=== PATIENT | male | born 2000 | race Caucasian/White ===

== ENCOUNTER 2019-08-30 18:58 | Inpatient (IN) | payer MEDICAID ==
[~2019-08-30] VITALS: Ht 177.8 cm; Wt 87.7 kg
[2019-08-30 21:54] LABS: BASOPHILS % (AUTO) 0.5 % (0.0-2.0); EOSINOPHILS % (AUTO) 0.7 % (1.0-6.0); HEMATOCRIT 50.5 % (41-53); HEMOGLOBIN 16.8 g/dL (13.5-17.5); LYMPHOCYTES # (AUTO) 2.4 K/uL (1.0-4.8); LYMPHOCYTES % (AUTO) 15.9 % (22.0-44.0); MEAN CORPUSCULAR HEMOGLOBIN 29.9 pg (26.0-34.0); MEAN CORPUSCULAR HGB CONC 33.3 G/dL (31.0-37.0); MEAN CORPUSCULAR VOLUME 90 fL (80-100); MONOCYTES # (AUTO) 0.9 K/uL (0.1-1.0); MONOCYTES % (AUTO) 6.2 % (2.0-9.0); NEUTROPHILS # (AUTO) 11.6 K/uL (1.8-7.7); NEUTROPHILS % (AUTO) 76.7 % (40.0-70.0); RED BLOOD CELL COUNT(AUTO) 5.63 MIL/uL (4.50-5.90); RED CELL DISTRIBUTION WIDTH 13.7 % (11.5-14.5)
[2019-08-30] MEDS ORDERED: LORazepam 2 MG TABLET PO PRN (22:00)
[2019-08-30] MEDS ORDERED: ALPRAZolam 0.25 MG TABLET PO ONE (22:00)
[2019-08-30] MEDS ORDERED: OLANZapine 5 MG RAPDIS TABLET PO PRN (22:00)
[2019-08-30 22:14] LABS: ANION GAP 7 mmol/L (8-16); CARBON DIOXIDE 29 mmol/L (22-29); CHLORIDE 103 mmol/L (98-107); CREATININE 0.81 mg/dL (0.60-1.30); GLOMERULAR FILTR. RATE CALC > 60 mL/min (>60); GLUCOSE,RANDOM 98 mg/dL (70-110); POTASSIUM 4.2 mmol/L (3.5-5.1); SODIUM SERUM 139 mmol/L (136-145); UREA NITROGEN, BLOOD 15 mg/dL (7-18)
[2019-08-30 22:21] LABS: ALANINE AMINOTRANSFERASE 42 U/L (12-78); ALBUMIN 4.4 g/dL (3.4-5.0); ALKALINE PHOSPHATASE 92 U/L (46-116); ASPARTATE AMINOTRANSFERASE 23 U/L (15-37); BILIRUBIN,TOTAL 0.6 mg/dL (0.1-1.0); TOTAL PROTEIN, SERUM 8.2 g/dL (6.4-8.2)
[2019-08-30 22:36] LABS: PLATELET COUNT (AUTO) 170 K/uL (150-450); PLATELET MORPHOLOGY COMMENT LARGE PLTS PRESENT
[2019-08-30 23:19] LABS: AMPHET/METH SCREEN,URINE POSITIVE (NEGATIVE); BARBITURATE SCREEN, URINE NEGATIVE (NEGATIVE); BENZODIAZEPINES SCREEN,URINE NEGATIVE (NEGATIVE); CANNABINOID SCREEN,URINE POSITIVE (NEGATIVE); COCAINE SCREEN,URINE NEGATIVE (NEGATIVE); METHADONE SCREEN, URINE NEGATIVE (NEGATIVE); OPIATE SCREEN,URINE NEGATIVE (NEGATIVE)
[2019-08-30 23:20] LABS: PHENCYCLIDINE SCREEN,URINE NEGATIVE (NEGATIVE)
[2019-08-31] MEDS: ZOLPIDEM TARTRATE 10 MG TABLET PO PRN ×2 (00:17→22:06)
[2019-08-31 00:56] LABS: CHOL/HDL RATIO 1.8 (4.2-7.3); CHOLESTEROL 127 mg/dL (131-200); HDL CHOLESTEROL 71 mg/dL (40-60); LDL CHOL (CALC.) 39 mg/dL (0-130); TRIGLYCERIDES 84 mg/dL (15-150)
[2019-08-31 01:01] LABS: APPEARANCE,URINE CLOUDY (CLEAR); BILIRUBIN,URINE NEGATIVE (NEGATIVE); GLUCOSE, URINE (UA) NEGATIVE (NEGATIVE); KETONES,URINE NEGATIVE (NEGATIVE); LEUKOCYTE ESTERASE ,URINE NEGATIVE (NEGATIVE); NITRATE,URINE NEGATIVE (NEGATIVE); OCCULT BLOOD,URINE NEGATIVE (NEGATIVE); PH,URINE 6.5 (5.0-8.0); PROTEIN,URINE NEGATIVE (NEGATIVE)
[2019-08-31 01:26] VITALS: BP 133/75
[2019-08-31 02:04] VITALS: BP 133/75
[2019-08-31] MEDS ORDERED: PETROLATUM,WHITE 28 GM JELLY TP PRN (08:15)
[2019-08-31] MEDS ORDERED: MAG HYDROX/AL HYDROX/SIMETH ES 30 ML SUSPENSION UDCUP PO PRN ×2 (08:15→17:30)
[2019-08-31] MEDS ORDERED: LOPERAMIDE HCL 2 MG CAPSULE PO PRN ×2 (08:15→17:30)
[2019-08-31] MEDS ORDERED: ONDANSETRON HCL 4 MG TABLET PO PRN (08:15)
[2019-08-31] MEDS ORDERED: ACETAMINOPHEN 325 MG TABLET PO PRN ×2 (08:15→17:30)
[2019-08-31] MEDS ORDERED: ALBUTEROL SULFATE HFA 90 MCG/PUFF 8 GM INHALER IH PRN (08:15)
[2019-08-31] MEDS ORDERED: GuaiFENesin/D-METHORPHAN [SUGAR-FREE] 200-20MG/10 ML SYRUP UDCUP PO PRN ×2 (08:15→17:30)
[2019-08-31] MEDS ORDERED: CloNIDine HCL 0.1 MG TABLET PO PRN (08:15)
[2019-08-31] MEDS ORDERED: IBUPROFEN 400 MG TABLET PO PRN (08:15)
[2019-08-31] MEDS ORDERED: MAGNESIUM HYDROXIDE SUSPENSION 30 ML UDCUP PO PRN ×2 (08:15→17:30)
[2019-08-31] MEDS ORDERED: DOCUSATE SODIUM 100 MG CAPSULE PO PRN (08:15)
[2019-08-31] MEDS ORDERED: NICOTINE 14 MG/24 HOUR PATCH TD PRN (08:15)
[2019-08-31] MEDS ORDERED: TUBERCULIN, PURIFIED PROTEIN DERIVATIVE 5 TU/0.1 ML SYRINGE ID ONE (17:30)
[2019-08-31] MEDS ORDERED: PROMETHAZINE HCL 25 MG TABLET PO PRN (17:30)
[2019-08-31] MEDS ORDERED: RisperiDONE 1 MG TABLET PO PRN (17:30)
[2019-08-31] MEDS ORDERED: HydrOXYzine PAMOATE 50 MG CAPSULE PO PRN (17:30)
[2019-08-31] MEDS: DIVALPROEX SODIUM 500 MG ER TABLET PO SCH (20:13)
[2019-08-31] MEDS: RisperiDONE 1 MG TABLET PO SCH (20:13)
[2019-09-01] MEDS: GuanFACINE HCL 1 MG TABLET PO SCH ×3 (09:00→16:08)
[2019-09-01] MEDS: FOLIC ACID 1 MG TABLET PO SCH (09:00)
[2019-09-01] MEDS: THIAMINE 100 MG TABLET PO SCH ×2 (09:00→16:09)
[2019-09-01] MEDS: ATOMOXETINE HCL 25 MG CAPSULE PO SCH (09:00)
[2019-09-01] MEDS: NALTREXONE HCL 50 MG TABLET PO SCH (09:00)
[2019-09-01] MEDS: MULTIVITAMINS WITH MINERALS, THERAPEUTIC TABLET PO SCH (09:00)
[2019-09-01 16:08] VITALS: BP 124/77
[2019-09-01] MEDS: DIVALPROEX SODIUM 500 MG ER TABLET PO SCH (20:15)
[2019-09-01] MEDS: RisperiDONE 1 MG TABLET PO SCH (20:15)
[2019-09-01] MEDS: ZOLPIDEM TARTRATE 10 MG TABLET PO PRN (22:13)
[2019-09-02 01:26] VITALS: BP 143/67
[2019-09-02] MEDS: NALTREXONE HCL 50 MG TABLET PO SCH (08:46)
[2019-09-02] MEDS: THIAMINE 100 MG TABLET PO SCH ×2 (08:46→17:28)
[2019-09-02] MEDS: FOLIC ACID 1 MG TABLET PO SCH (08:46)
[2019-09-02] MEDS: GuanFACINE HCL 1 MG TABLET PO SCH ×3 (08:46→17:28)
[2019-09-02] MEDS: MULTIVITAMINS WITH MINERALS, THERAPEUTIC TABLET PO SCH (08:46)
[2019-09-02] MEDS: ATOMOXETINE HCL 25 MG CAPSULE PO SCH (08:46)
[2019-09-02 09:23] LABS: HEMOGLOBIN A1C 4.8 % (3.8-5.6)
[2019-09-02 09:42] LABS: CHOL/HDL RATIO 1.9 (4.2-7.3); FREE T4 (FREE THYROXINE) 1.19 ng/dL (0.76-1.46); THYROID STIMULATING HORMONE 1.71 uIU/mL (0.36-3.74)
[2019-09-02 16:17] VITALS: BP 133/74
[2019-09-02] MEDS: RisperiDONE 1 MG TABLET PO SCH (20:19)
[2019-09-02] MEDS: DIVALPROEX SODIUM 500 MG ER TABLET PO SCH (20:19)
[2019-09-02] MEDS: ZOLPIDEM TARTRATE 10 MG TABLET PO PRN (20:20)
[2019-09-03 08:22] VITALS: BP 106/59
[2019-09-03] MEDS: MULTIVITAMINS WITH MINERALS, THERAPEUTIC TABLET PO SCH (08:55)
[2019-09-03] MEDS: GuanFACINE HCL 1 MG TABLET PO SCH ×3 (08:55→16:16)
[2019-09-03] MEDS: THIAMINE 100 MG TABLET PO SCH ×2 (08:55→16:16)
[2019-09-03] MEDS: FOLIC ACID 1 MG TABLET PO SCH (08:55)
[2019-09-03] MEDS: NALTREXONE HCL 50 MG TABLET PO SCH (08:56)
[2019-09-03] MEDS: ATOMOXETINE HCL 25 MG CAPSULE PO SCH (08:56)
[2019-09-03 16:39] VITALS: BP 119/60
[2019-09-03] MEDS ORDERED: DIVA-80 PO (18:51)
[2019-09-03] MEDS ORDERED: ATOM25CA8 PO (18:51)
[2019-09-03] MEDS ORDERED: RISP1TAB89 PO (18:51)
[2019-09-03] MEDS ORDERED: GUAN1TAB2 PO (18:51)
[2019-09-03] MEDS ORDERED: NALT50TA PO (18:51)
[2019-09-03] MEDS: RisperiDONE 1 MG TABLET PO SCH (19:42)
[2019-09-03] MEDS: DIVALPROEX SODIUM 500 MG ER TABLET PO SCH (19:42)
== END 2019-09-03 20:30 | disposition home or self-care (01) | DRG 885 ==
LOC: EMS 18:58 → 3EC 21:54
PROVIDERS: ADMIT Psychiatry & Neurology Psychiatry; ATTEND Psychiatry & Neurology Psychiatry
DX: F20.9 Schizophrenia, unspecified (principal); R45.851 Suicidal ideations; F90.9 Attention-deficit hyperactivity disorder, unspecified type; R45.850 Homicidal ideations; Z91.19 Patient's noncompliance with other medical treatment and regimen; F17.210 Nicotine dependence, cigarettes, uncomplicated; F32.9 Major depressive disorder, single episode, unspecified; F41.9 Anxiety disorder, unspecified; F19.10 Other psychoactive substance abuse, uncomplicated; K59.00 Constipation, unspecified; D72.829 Elevated white blood cell count, unspecified; F15.10 Other stimulant abuse, uncomplicated; F10.20 Alcohol dependence, uncomplicated; Y90.9 Presence of alcohol in blood, level not specified
CPT/HCPCS: 83036; 84439; 84443; 86592; G0480

== ENCOUNTER 2023-03-24 20:13 | Emergency (ER) | payer OTHER ==
[~2023-03-24] VITALS: Ht 177.8 cm; Wt 82.0 kg
[~2023-03-24 20:13] MED LIST: ATOM25CA8 PO; DIVA500T53 PO; GUAN1TAB2 PO; NALT50TA PO; RISP-31 PO
[2023-03-24 20:47] VITALS: BP 126/62; PULSE 89; RESP 20; TEMP 99.5
== END 2023-03-24 20:55 | disposition left against medical advice (07) ==
LOC: EMS 20:28
DX: R50.9 Fever, unspecified (principal); M54.9 Dorsalgia, unspecified; Z53.21 Procedure and treatment not carried out due to patient leaving prior to being seen by health care provider
CPT/HCPCS: 99281; Z7502

== ENCOUNTER 2023-10-09 17:09 | Emergency (ER) | payer OTHER ==
[~2023-10-09] VITALS: Ht 177.8 cm; Wt 81.8 kg
[~2023-10-09 17:09] MED LIST changes: +DIVA-153 PO; -DIVA500T53 PO; -NALT50TA PO; +NALT50TA6 PO
[2023-10-09 17:19] VITALS: TEMP 98.7
[2023-10-09 17:37] LABS: BASOPHILS % (AUTO) 0.8 % (0.0-2.0); EOSINOPHILS % (AUTO) 1.2 % (1.0-6.0); HEMATOCRIT 47.2 % (41-53); HEMOGLOBIN 15.8 g/dL (13.5-17.5); LYMPHOCYTES # (AUTO) 1.5 K/uL (1.0-4.8); LYMPHOCYTES % (AUTO) 14.9 % (22.0-44.0); MEAN CORPUSCULAR HGB CONC 33.4 G/dL (31.0-37.0); MEAN CORPUSCULAR VOLUME 84 fL (80-100); MONOCYTES # (AUTO) 0.8 K/uL (0.1-1.0); MONOCYTES % (AUTO) 8.2 % (2.0-9.0); NEUTROPHILS # (AUTO) 7.5 K/uL (1.8-7.7); NEUTROPHILS % (AUTO) 74.9 % (40.0-70.0); PLATELET COUNT (AUTO) 255 K/uL (150-450); RED BLOOD CELL COUNT(AUTO) 5.65 MIL/uL (4.50-5.90); RED CELL DISTRIBUTION WIDTH 15.1 % (11.5-14.5)
[2023-10-09 17:44] LABS: ANION GAP 9 mmol/L (8-16); CALCIUM, TOTAL 9.1 mg/dL (8.8-10.5); CARBON DIOXIDE 26 mmol/L (22-29); CHLORIDE 100 mmol/L (98-107); GLOMERULAR FILTR. RATE CALC > 60 mL/min (>60); GLUCOSE,RANDOM 94 mg/dL (70-110); SODIUM SERUM 135 mmol/L (136-145); UREA NITROGEN, BLOOD 8 mg/dL (7-18)
[2023-10-09 17:54] LABS: ALCOHOL, BLOOD (SERUM) < 3 mg/dL (0-10)
[2023-10-09 19:27] LABS: APPEARANCE,URINE CLEAR (CLEAR); BILIRUBIN,URINE NEGATIVE (NEGATIVE); COLOR,URINE LIGHT YELLOW (YELLOW); GLUCOSE, URINE (UA) NEGATIVE (NEGATIVE); KETONES,URINE NEGATIVE (NEGATIVE); LEUKOCYTE ESTERASE ,URINE NEGATIVE (NEGATIVE); NITRATE,URINE NEGATIVE (NEGATIVE); OCCULT BLOOD,URINE NEGATIVE (NEGATIVE); PH,URINE 6.5 (5.0-8.0); PH,URINE DRUG SCREEN 6.5 (5.0-8.0); PROTEIN,URINE NEGATIVE (NEGATIVE); SPECIFIC GRAVITIY, URINE 1.013 (1.003-1.030); UROBILINOGEN,URINE <=1.0 mg/dL (<=1.0)
[2023-10-09 19:35] LABS: ALCOHOL, URINE DRUG SCREEN NEGATIVE (NEGATIVE); AMPHET/METH SCREEN,URINE POSITIVE (NEGATIVE); BARBITURATE SCREEN, URINE NEGATIVE (NEGATIVE); BENZODIAZEPINES SCREEN,URINE NEGATIVE (NEGATIVE); CANNABINOID SCREEN,URINE NEGATIVE (NEGATIVE); COCAINE SCREEN,URINE NEGATIVE (NEGATIVE); METHADONE SCREEN, URINE NEGATIVE (NEGATIVE); OPIATE SCREEN,URINE NEGATIVE (NEGATIVE); PHENCYCLIDINE SCREEN,URINE NEGATIVE (NEGATIVE)
[2023-10-09] MEDS: BUPRENORPHINE HCL/NALOXONE HCL 8-2 MG SUBLINGUAL TABLET SL ONE (21:40)
[2023-10-09] MEDS ORDERED: ONDA-104 PO (22:11)
[2023-10-09] MEDS ORDERED: DICY-1 PO (22:11)
[2023-10-09 22:56] VITALS: BP 127/69; PULSE 76; RESP 22; O2SAT 98
== END 2023-10-09 23:11 | disposition home or self-care (01) ==
LOC: EMS 17:09
DX: F11.23 Opioid dependence with withdrawal (principal); F15.90 Other stimulant use, unspecified, uncomplicated
CPT/HCPCS: 99283; 80048; 81003; 85025; 36415; 80307; G0480

== ENCOUNTER 2024-04-06 08:15 | Emergency (ER) | payer OTHER ==
[~2024-04-06] VITALS: Ht 175.3 cm; Wt 81.4 kg
[~2024-04-06 08:15] MED LIST changes: -ATOM25CA8 PO; +DICY-1 PO; -DIVA-153 PO; -GUAN1TAB2 PO; -NALT50TA6 PO; +ONDA-104 PO; -RISP-31 PO
[2024-04-06 08:27] VITALS: BP 114/53; PULSE 95; RESP 12; TEMP 97.3; O2SAT 99
[2024-04-06] MEDS ORDERED: NALO4SPR NASAL (08:30)
[2024-04-06] MEDS: ONDANSETRON 4 MG RAPDIS TABLET PO ONE (10:24)
== END 2024-04-06 10:24 | disposition home or self-care (01) ==
LOC: EMS 08:19
DX: T40.2X1A Poisoning by other opioids, accidental (unintentional), initial encounter (principal); F15.90 Other stimulant use, unspecified, uncomplicated; Z71.6 Tobacco abuse counseling; Y92.89 Other specified places as the place of occurrence of the external cause
CPT/HCPCS: 99282; Z7502

== ENCOUNTER → 2024-04-16 | Emergency (ER) | payer OTHER ==
[~2024-04-16] VITALS: Ht 185.4 cm; Wt 82.0 kg
[~2024-04-16] MED LIST changes: +NALO4SPR NASAL
[2024-04-16 00:17] VITALS: BP 104/74; PULSE 89; RESP 16; TEMP 97.9; O2SAT 100
== END | disposition left against medical advice (07) ==
LOC: EMS 00:24
DX: R46.89 Other symptoms and signs involving appearance and behavior (principal); Z53.21 Procedure and treatment not carried out due to patient leaving prior to being seen by health care provider